=== PATIENT | male | born 1980 | race Caucasian/White ===

== ENCOUNTER 2016-09-30 16:13 | Day surgery (SDC) | payer SELFPAY ==
--- NOTE | ~2016-09-30 | OP ---
Record Of Operation [facility] [address] [place]. [address] NAME: JAKI SHEPPARD : 80 STATUS : DIS [place] PAT#: [id number] AGE: 36 ADM/REG DATE : 09/30/16 MR#: [id number] REPORT SERV DATE: 10/01/16 DICTATED BY: DONN NEIL JR. DATE: 09/30/16 REPORT STATUS : Draft TRANSCRIBED BY: MODL DATE: 09/30/16 DATE OF PROCEDURE: 09/30/2016 SURGEON: Donn Neil M.D. PREOPERATIVE DIAGNOSES: Left ureteral stone and left renal stones. POSTOPERATIVE DIAGNOSES: Left ureteral stone and left renal stones. PROCEDURE PERFORMED: Cystoscopy, left retrograde pyelogram, meatal dilation, ureteral orifice dilation, ureteroscopy, laser ablation of left ureteral stone and left renal stones, double-J stent placement, and retrograde pyelogram. COMPLICATIONS: None. CONSULTATIONS: None. ANESTHESIA: General with endotracheal tube. SPECIMENS: None. DRAINS: 6 x 26 cm double-J stent. ESTIMATED BLOOD LOSS: None. INDICATION: Mr. Sheppard is a 36-year-old gentleman, who presented to the [facility], was found to have an 8 mm ureteral stone on the left causing significant hydroureteronephrosis. His pain level is significant as well. I was called by the transfer center to accept the patient, and he was admitted to the preoperative area where we will plan ureteroscopy and stone extraction. I had a lengthy discussion with the patient about the risks and possible complications of the procedure. His questions were answered to his satisfaction. He understands he will have a stent put in today that would require removal and that likely he would have a string attached, taped to his penis which will be used for removal in 5 to 7 days. PROCEDURE IN DETAIL: After the patient was identified and proper informed consent was obtained, he was taken to the operating room. General anesthesia was performed without complication using an endotracheal tube. He was then prepped and draped in normal sterile fashion in the lithotomy position. I attempted cystoscopic exam with a 20-[place] cystoscope, however, his meatus was somewhat stenotic, this was dilated with [place] sounds to 22-[place]izen [place] at which point 20-[place]izen [place] cystoscope would go through the urethra. He also had a mild narrowing in the penile urethra, approximately midway back to the bulbous urethra. This was reasonably compliant and the cystoscope went through this area without difficulties. I then examined the bladder. I did not note any stones within the bladder. No diverticula. No tumors. The bladder lining appeared normal. The left ureteral orifice was identified and cannulated with a 5-Citizen [place] open-ended catheter. Retrograde pyelogram was Record Of Operation [address] [address] NAME: JAKI SHEPPARD : 80 STATUS : DIS [place] PAT#: [id number] AGE: 36 ADM/REG DATE : 09/30/16 MR#: [id number] REPORT SERV DATE: 10/01/16 DICTATED BY: DONN NEIL JR. DATE: 09/30/16 REPORT STATUS : Draft TRANSCRIBED BY: SHERRELL DATE: 09/30/16 performed which reveals a filling defect in the distal upper ureter just above the pelvic inlet with hydroureteronephrosis above the stone. I did not see the stone on preoperative KUB. I did not note any other filling defects within the kidney, but based on CT report, he was known to have some other renal stones as well. I then advanced a guidewire through the open-ended catheter up to the renal pelvis, and using a 12-[place] ureteral access sheath, dilated the distal ureter. I then removed the access sheath. I then placed a flexible ureteroscope alongside the guidewire up the ureter to the level of the stone and used a 200 micron Holmium laser fiber to dust the stone using the dusting setting on the Holmium laser machine. Once the stone had been completely dusted, I then inspected the renal pelvis and calyces. He had a second stone in the lower pole calyx. This was also fragmented and dusted into small fragments and then one other stone in an upper pole calyx which was also treated with laser to ablate dust as well. Once I was satisfied that all stones have been fragmented, I removed the ureteroscope leaving the guidewire in place and deployed a 6 x 26 cm double-J stent with a nice curl in both the bladder and the kidney. The string was left in place and taped to the patient's penis for removal on Friday. I drained the bladder with a 16-[place]izen [place] Garcia catheter. The patient was awakened in the operating room and transferred to the postanesthesia care unit in stable condition. W[place]/MODL Donn Neil Jr., M.D. / [id number] CC: Humberto Burnham Jr., MD
== END 2016-09-30 20:00 | disposition home or self-care (01) ==
LOC: SDC 16:13
PROVIDERS: Urology
PROC: 0T778DZ Dilation of Left Ureter with Intraluminal Device, Via Natural or Artificial Opening Endoscopic (ICD-10-PCS; 2016-09-30)
PROC: 0TF48ZZ Fragmentation in Left Kidney Pelvis, Via Natural or Artificial Opening Endoscopic (ICD-10-PCS; 2016-09-30)
PROC: BT1FYZZ Fluoroscopy of Left Kidney, Ureter and Bladder using Other Contrast (ICD-10-PCS; 2016-09-30)
PROC: 0TF78ZZ Fragmentation in Left Ureter, Via Natural or Artificial Opening Endoscopic (ICD-10-PCS; principal; 2016-09-30 15:15)
DX: N13.2 Hydronephrosis with renal and ureteral calculous obstruction (principal); K21.9 Gastro-esophageal reflux disease without esophagitis; J30.2 Other seasonal allergic rhinitis
CPT/HCPCS: 74420; A9270-GY; C1758; C1894; C2617; J2250; J2270; J2405; J2710; J3010; Q9967